=== PATIENT | female | born 2000 | race Caucasian/White ===

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

== ENCOUNTER 2018-07-19 08:55 | Emergency (ER) | payer MEDICAID, OTHER ==
[2018-07-19] MEDS ORDERED: MORPHINE SULFATE 10 MG/ML INJ IV ONE (09:31)
[2018-07-19] MEDS ORDERED: ONDANSETRON HCL INJ/PF 4 MG/2 ML SDV IV ONE ×2 (09:31→12:35)
--- NOTE | 2018-07-19 09:34 | ER Document Report ---
ED General - General Chief Complaint: Pelvic Pain Stated Complaint: ABDOMINAL PAIN Time Seen by Provider: 07/19/18 09:24 TRAVEL OUTSIDE OF THE [place] IN LAST 30 DAYS: No - HPI Notes: Patient is a 18-year-old female with no significant past medical history who presents to the ED complaining of lower abdominal/pelvic pain times 1 day. Patient states her pain started last evening and has progressed and at this morning. Patient states that the pain is constant and more of a sharp pain. Patient states that the pain does not radiate, but does encompass her entire lower pelvic/abdomen area. She is still able to eat and drink without difficulties. She is urinating normally and having normal bowel movements. Patient states that she is currently on her menstrual cycle, but has not noticed any other vaginal odor or discharge. She has no concern of STD or STI, but does partake in unprotected sex. She is not on any control measures. No surgical history to her abdomen. Denies any headache, fever, URI, sore throat, chest pain, palpitations, syncope, cough, shortness of breath, wheeze, dyspnea, nausea/vomiting/diarrhea, urinary retention, dysuria, hematuria, back pain, loss of control of bowel or bladder, numbness/tingling, saddle anesthesia , muscle paralysis/weakness, or rash. - Related Data Allergies/Adverse Reactions: guaifenesin [Guaifenesin] Allergy (Verified 03/30/15 23:20) Penicillins Allergy (Verified 03/30/15 23:20) Past Medical History - Social History Smoking Status: Unknown if Ever Smoked Family History: DM, Hyperlipidemia, Malignancy Renal/ Medical History: Denies: Hx Peritoneal Dialysis - Immunizations Immunizations up to date: Yes Review of Systems - Review of Systems -: Yes All other systems reviewed and negative Physical Exam - Vital signs Vitals: Temp Pulse Resp BP Pulse Ox 98.2 F 96 18 101/63 98 07/19/18 09:02 07/19/18 09:02 07/19/18 09:02 07/19/18 09:02 07/19/18 09:02 - Notes Notes: PHYSICAL EXAMINATION: GENERAL: Well-appearing, well-nourished and in no acute distress. A&Ox4. Answers questions appropriately. LUNGS: Breath sounds clear to auscultation bilaterally and equal. No wheezes rales or rhonchi. HEART: Regular rate and rhythm without murmurs ABDOMEN: Soft, nondistended abdomen. No guarding, no rebound. No masses appreciated. Normal bowel sounds present. CVA tenderness negative bilaterally. + tenderness lower pelvic/abd throughout. Nesbitt neg. Female : No inguinal adenopathy. External genitalia without erythema, lesions , or masses. Vaginal mucosa pink, + bloody discharge. Cervix parous, pink, and with bloody discharge. Uterus is smooth. No adnexal tenderness. No cervical motion tenderness. Musculoskeletal: FROM to passive/active. Strength 5+/5. Extremities: No cyanosis/clubbing/edema b/l. Peripheral pulses 2+. Capillary refill less than 3 seconds. NEUROLOGICAL: Normal speech, normal gait. PSYCH: Normal mood, normal affect. SKIN: Warm, Dry, normal turgor, no rashes or lesions noted. Course - Re-evaluation Re-evalutation: 07/19/18 15:20 Patient is an afebrile, well-hydrated, 18-year-old female who presents to the ED with BV & pelvic pain in the setting of chlamydia and gonorrhea, suspect PID despite significant tenderness with CMT. Vitals are acceptable without any significant tachycardia, tachypnea, or hypoxia. PE is otherwise unremarkable. CBC shows an elevated wbc with left shift. CMP, Urinalysis, and hCG are unremarkable for any acute pathology. See wet mount results. Patient was given Rocephin and Zithromax. Patient is nontoxic-appearing is tolerating p.o. without any difficulties. CT scan of the abdomen/pelvis and transvaginal ultrasound was unremarkable for any acute pathology. No other labs or imaging warranted at this time based on H&P. Low suspicion/risk for acute appendicitis , bowel obstruction, acute cholecystitis, acute cholangitis, perforated diverticulitis, incarcerated hernia, pancreatitis, perforated ulcer, peritonitis , sepsis, ectopic , tubo-ovarian abscess, ovarian torsion, or other systemic emergent condition at this time. Patient is aware that her condition can change from initial presentation and she needs to monitor symptoms closely and seek medical attention if any acute changes. I will send her home with prescription for doxycycline and Flagyl both for 14 days per up-to-date. Conservative measures otherwise for symptoms. Recheck with your PCM/OBGYN in 3- 5 days. Return to the ED with any worsening/concerning symptoms otherwise as reviewed in discharge. Patient is in agreement. Dr. Dacosta in agreement with dispo/plan. - Vital Signs Vital signs: Temp Pulse Resp BP Pulse Ox 98.2 F 96 18 101/63 98 07/19/18 09:02 07/19/18 09:02 07/19/18 09:02 07/19/18 09:02 07/19/18 09:02 - Laboratory Result Diagrams: 07/19/18 09:24 07/19/18 09:24 Laboratory results interpreted by me: 07/19/18 07/19/18 07/19/18 09:24 10:28 10:28 WBC 16.6 H Seg Neutrophils % 84.3 H Lymphocytes % 8.8 L Absolute Neutrophils 14.0 H Urine Protein 30 H Urine Ketones TRACE H Urine Blood LARGE H Urine Urobilinogen 2.0 H Ur Leukocyte Esterase SMALL H Chlamydia DNA (PCR) DETECTED H N.gonorrhoeae DNA (PCR) DETECTED H Procedures - Pelvic Exam Pelvic exam Time completed: 10:20 Cultures obtained: Yes Wet prep obtained: Yes Bimanual exam performed: Yes - negative. Witnessed by: KAMRON Kraft Discharge - Discharge Clinical Impression: Gonorrhea, Chlamydia, PID (acute pelvic inflammatory disease) Condition: Stable Disposition: HOME, SELF-CARE Instructions: Gonorrhea ([facility]), Chlamydia ([facility]), Doxycycline ([facility]), Pelvic Inflammatory Disease ([facility]), Metronidazole ([facility]) Additional Instructions: Maintain fluid intake Proper hygienic technique Keep the skin clean Safe sexual practices with condoms everytime, but abstained for the next 2 weeks while you are being treated Tylenol/ibuprofen as needed Check in with the health department this week for further testing F/u with your PCM/OBGYN in 3-5 days for a recheck Return to the ED with any development of STEINER/fever, trouble with vision, eye redness, worsening pain, urethral discharge, urinary retention, blood in the urine, flank pain, abdominal pain, n/v, Chest Pain, shortness of breath, joint pains, trouble breathing, or any other worsening/concerning symptoms as needed otherwise. Prescriptions: Doxycycline Hyclate 100 mg PO BID #28 capsule Metronidazole [Flagyl] 500 mg PO BID #28 tablet Referrals: MARY CHARLES, SURVEYOR MINE-C [COMMUNITY BASED STAFF] - Follow up as needed [facility] [Provider Group] - Follow up in 3-5 days
[2018-07-19 09:48] LABS: ABSOLUTE BASOPHILS # (AUTO) 0.1 10^3/uL (0.0-0.2); ABSOLUTE EOSINOPHILS # (AUTO) 0.1 10^3/uL (0.0-0.6); ABSOLUTE LYMPHOCYTES (AUTO) 1.5 10^3/uL (0.5-4.7); ABSOLUTE MONOCYTES (AUTO) 0.9 10^3/uL (0.1-1.4); BASOPHILS % (AUTO) 0.3 % (0-2); EOSINOPHILS % (AUTO) 0.9 % (0-6); HEMATOCRIT 39.2 % (36.0-47.0); HEMOGLOBIN 13.3 g/dL (12.0-15.5); LYMPHOCYTES % (AUTO) 8.8 % (13-45); MEAN CORPUSCULAR HEMOGLOBIN 31.6 pg (27.0-33.4); MEAN CORPUSCULAR VOLUME 93 fl (80-97); MONOCYTES % (AUTO) 5.7 % (3-13); PLATELET COUNT 242 10^3/uL (150-450); RED BLOOD COUNT 4.22 10^6/uL (3.72-5.28); RED CELL DISTRIBUTION WIDTH 12.8 % (11.5-14.0); SEGMENTED NEUTROPHILS % (AUTO) 84.3 % (42-78); TOTAL CELLS COUNTED % (AUTO) 100 %; WHITE BLOOD COUNT 16.6 10^3/uL (4.0-10.5)
[2018-07-19 10:12] LABS: ALANINE AMINOTRANSFERASE 18 U/L (9-52); ALBUMIN 4.9 g/dL (3.5-5.0); ALKALINE PHOSPHATASE 67 U/L (38-126); ANION GAP 14 (5-19); ASPARTATE AMINO TRANSFERASE 25 U/L (14-36); BILIRUBIN,DIRECT 0.2 mg/dL (0.0-0.4); BILIRUBIN,TOTAL 0.9 mg/dL (0.2-1.3); BLOOD UREA NITROGEN 9 mg/dL (7-20); CARBON DIOXIDE 28 mmol/L (22-30); CHLORIDE 99 mmol/L (98-107); GLUCOSE 84 mg/dL (75-110); LIPASE 50.3 U/L (23-300); POTASSIUM 4.1 mmol/L (3.6-5.0)
[2018-07-19 10:42] LABS: BACTERIA (WET MOUNT) 3+ BACTERIA SEEN; EPITHELIALS (WET MOUNT) 3+ EPITHELIALS SEEN; RBCS (WET MOUNT) 3+ RBCS SEEN; T.VAGINALIS (WET MOUNT) NO TRICHOMONAS SEEN; WBCS (WET MOUNT) 3+ WBCS SEEN; YEAST (WET MOUNT) NO YEAST SEEN
--- NOTE | 2018-07-19 10:45 | RADIOLOGY REPORT (SQ) ---
EXAM DESCRIPTION: U/S NON OB PEL TV W/DOPPLER COMPLETED DATE/TIME: 07/19/2018 10:09 am REASON FOR STUDY: pelvic pain COMPARISON: None. TECHNIQUE: Dynamic and static grayscale images acquired of the pelvis via transvaginal approach and recorded on PACS. Additional selected color Doppler and spectral images recorded. LIMITATIONS: Pelvic bowel gas, left ovary not visualized FINDINGS: UTERUS: Contour normal. No mass. Uterus is 8 x 4 x 4 cm in size, no fibroids ENDOMETRIAL STRIPE: No focal or generalized thickening. No masses. Endometrium 1.8 cm in thickness CERVIX: No nabothian cysts. Cervix is closed, 2.8 cm in length. RIGHT OVARY AND DOPPLER: Normal size, right ovary 2.7 x 2.4 x 1.9 cm in size. No worrisome masses. No rmal arterial vascular flow without evidence for torsion. LEFT OVARY AND DOPPLER: Not visualized due to pelvic bowel gas. FREE FLUID: None noted. OTHER: No other significant finding. IMPRESSION: NONVISUALIZATION LEFT OVARY AND ADNEXA DUE TO BOWEL GAS. OTHERWISE, UNREMARKABLE TRANSVAGINAL PELVIC ULTRASOUND. TECHNICAL DOCUMENTATION: JOB ID: [id number] All Rights Reserved Rev-01/10 Reading location - IP/workstation name: [email or web address]
[2018-07-19 11:00] LABS: APPEARANCE,URINE SLIGHTLY-CLOUDY; BILIRUBIN,URINE NEGATIVE (NEGATIVE); COLOR,URINE YELLOW; GLUCOSE, URINE NEGATIVE (NEGATIVE); KETONES,URINE TRACE mg/dL (NEGATIVE); LEUKOCYTE ESTERASE,URINE SMALL (NEGATIVE); NITRITE,URINE NEGATIVE (NEGATIVE); PROTEIN,URINE 30 mg/dL (NEGATIVE); URINE SPECIFIC GRAVITY 1.021
[2018-07-19 12:09] LABS: CHLAM PCR DETECTED (NOT DETECT); GON PCR DETECTED (NOT DETECT)
[2018-07-19] MEDS ORDERED: AZITHROMYCIN 250 MG TABLET PO ONE (12:42)
[2018-07-19] MEDS ORDERED: CEFTRIAXONE INJ 250 MG VIAL IM ONE (12:42)
[2018-07-19] MEDS ORDERED: LIDOCAINE 1% INJ-PF (10 MG/ML) 30 ML SDV INJ ONE (12:42)
--- NOTE | 2018-07-19 15:12 | RADIOLOGY REPORT (SQ) ---
EXAM DESCRIPTION: CT ABD/PELVIS WITH IV ORAL COMPLETED DATE/TIME: 07/19/2018 2:47 pm REASON FOR STUDY: lower abd pain, leukocytosis COMPARISON: Pelvic ultrasound 07/19/2018 TECHNIQUE: CT scan of the abdomen and pelvis performed using helical scanning technique with dynamic intravenous contrast injection. Oral contrast was also administered. Images reviewed with lung, sof t tissue, and bone windows. Reconstructed coronal and sagittal MPR images reviewed. Delayed images fo r evaluation of the urinary system also acquired. All images stored on PACS. All CT scanners at this facility use dose modulation, iterative reconstruction, and/or weight based d osing when appropriate to reduce radiation dose to as low as reasonably achievable (ALARA). [facility]: Dose Right [facility]: CareDose [facility]: Dose Right [facility]: Teradose 4D [facility]: Jovie CONTRAST TYPE AND DOSE: contrast/concentration: Isovue 350.00 mg/ml; Total Contrast Delivered: 54.0 ml; Total Saline Delivered: 65.0 ml RENAL FUNCTION: None required. The patient is less than 50 years old. RADIATION DOSE: CT Rad equipment meets quality standard of care and radiation dose reduction techniq ues were employed. CTDIvol: 2.4 - 3.6 mGy. DLP: 323 mGy-cm.. LIMITATIONS: None. FINDINGS: LOWER CHEST: No significant findings. No nodules or infiltrates. LIVER: Normal size. No masses. No dilated ducts. SPLEEN: Normal size. No focal lesions. PANCREAS: No masses. No significant calcifications. No adjacent inflammation or peripancreatic fluid collections. Pancreatic duct not dilated. GALLBLADDER: No identified stones by CT criteria. No inflammatory changes to suggest cholecystitis. ADRENAL GLANDS: No significant masses or asymmetry. RIGHT KIDNEY AND URETER: No solid masses. No significant calcifications. No hydronephrosis or hyd roureter. LEFT KIDNEY AND URETER: No solid masses. No significant calcifications. No hydronephrosis or hydr oureter. AORTA AND VESSELS: No aneurysm. No dissection. Renal arteries, SMA, celiac without stenosis. RETROPERITONEUM: No retroperitoneal adenopathy, hemorrhage or masses. BOWEL AND PERITONEAL CAVITY: Enteric contrast has propagated to the level of the rectum. No masses o r inflammatory changes. No free fluid or peritoneal masses. APPENDIX: Normal. PELVIS: No mass. No free fluid. Normal bladder. The uterus and ovaries appear normal for modality/t echnique. ABDOMINAL WALL: No masses. No hernias. BONES: No significant or acute findings. OTHER: No other significant finding. IMPRESSION: NO SIGNIFICANT OR ACUTE FINDING IN THE ABDOMEN OR PELVIS ON CT SCAN WITH IV CONTRAST. TECHNICAL DOCUMENTATION: JOB ID: [id number] Quality ID # [id number]: Final reports with documentation of one or more dose reduction techniques (e.g., Au tomated exposure control, adjustment of the mA and/or kV according to patient size, use of iterative reconstruction technique) 2010 [employer]- All Rights Reserved Reading location - IP/workstation name: [email or web address]
[2018-07-19 15:29] VITALS: BP 113/57
== END 2018-07-19 15:54 | disposition home or self-care (01) ==
LOC: ER 08:55
DX: A56.11 Chlamydial female pelvic inflammatory disease (principal); A54.24 Gonococcal female pelvic inflammatory disease; R10.2 Pelvic and perineal pain; Z88.0 Allergy status to penicillin; Z88.8 Allergy status to other drugs, medicaments and biological substances
CPT/HCPCS: 99284; 96372; 96374; 36415; 87210; 84702; 83690; 85025; 80053; 81001; 87491; 87591; 76830; 93976; 74177; J3490; J2405; J0696

== ENCOUNTER 2020-02-12 22:45 | Outpatient (CLI) | payer MEDICAID ==
[2020-02-12 23:22] LABS: APPEARANCE,URINE CLEAR; BILIRUBIN,URINE NEGATIVE (NEGATIVE); COLOR,URINE COLORLESS; GLUCOSE, URINE NEGATIVE (NEGATIVE); KETONES,URINE NEGATIVE (NEGATIVE); LEUKOCYTE ESTERASE,URINE NEGATIVE (NEGATIVE); NITRITE,URINE NEGATIVE (NEGATIVE); PROTEIN,URINE NEGATIVE (NEGATIVE); URINE SPECIFIC GRAVITY 1.002; UROBILINOGEN,URINE NEGATIVE mg/dL (<2.0)
[2020-02-12 23:41] LABS: URINE AMPHETAMINES SCREEN NEGATIVE; URINE BARBITURATES SCREEN NEGATIVE; URINE BENZODIAZEPINES SCREEN NEGATIVE; URINE COCAINE SCREEN NEGATIVE; URINE MARIJUANA (THC) SCREEN NEGATIVE; URINE METHADONE SCREEN NEGATIVE; URINE PHENCYCLIDINE SCREEN NEGATIVE
== END 2020-02-12 23:41 | disposition home or self-care (01) ==
LOC: LC 22:45
PROVIDERS: ATTEND Student in an Organized Health Care Education/Training Program
DX: O26.892 Other specified pregnancy related conditions, second trimester (principal); R10.2 Pelvic and perineal pain; Z3A.23 23 weeks gestation of pregnancy; Z88.1 Allergy status to other antibiotic agents; Z87.891 Personal history of nicotine dependence
CPT/HCPCS: 80307; 81001

== ENCOUNTER 2020-04-22 16:04 | Outpatient (CLI) | payer OTHER ==
[2020-04-22 17:08] LABS: APPEARANCE,URINE SLIGHTLY-CLOUDY; BILIRUBIN,URINE NEGATIVE (NEGATIVE); COLOR,URINE STRAW; GLUCOSE, URINE NEGATIVE (NEGATIVE); KETONES,URINE NEGATIVE (NEGATIVE); LEUKOCYTE ESTERASE,URINE LARGE (NEGATIVE); NITRITE,URINE NEGATIVE (NEGATIVE); PROTEIN,URINE NEGATIVE (NEGATIVE); URINE SPECIFIC GRAVITY 1.005; UROBILINOGEN,URINE NEGATIVE mg/dL (<2.0)
[2020-04-22 17:21] LABS: BACTERIA (WET MOUNT) 4+ BACTERIA SEEN; EPITHELIALS (WET MOUNT) 4+ EPITHELIALS SEEN; T.VAGINALIS (WET MOUNT) NO TRICHOMONAS SEEN; WBCS (WET MOUNT) 3+ WBCS SEEN; YEAST (WET MOUNT) YEAST SEEN
[2020-04-22 17:22] LABS: URINE AMPHETAMINES SCREEN NEGATIVE; URINE BARBITURATES SCREEN NEGATIVE; URINE BENZODIAZEPINES SCREEN NEGATIVE; URINE COCAINE SCREEN NEGATIVE; URINE MARIJUANA (THC) SCREEN NEGATIVE; URINE METHADONE SCREEN NEGATIVE; URINE PHENCYCLIDINE SCREEN NEGATIVE
[2020-04-22] MEDS ORDERED: RINGERS SOLUTION,LACTATED 1,000 ML IV PRN (18:15)
[2020-04-22] MEDS ORDERED: FLUCONAZOLE 100 MG TABLET PO ONE (18:35)
[2020-04-22] MEDS ORDERED: CEFTRIAXONE INJ 1000 MG VIAL ONE (18:36)
[2020-04-22] MEDS ORDERED: FLUCONAZOLE 100 MG TABLET ONE (18:36)
[2020-04-22 18:54] LABS: CHLAM PCR NOT DETECTED (NOT DETECT)
--- NOTE | 2020-04-23 01:44 | Non Stress Test Report ---
Non Stress Test Datetime Report Generated by CPN: 04/23/2020 01:44 DEMOGRAPHIC EGA NST: 33.3 INDICATION Indication for Study (NST) Other: >32 weeks URINE RESULTS Urine Protein, NST: Negative Urine Ketones - NST: Negative Urine Glucose - NST: Negative Urine Blood - NST: Negative MONITORING Monitor Explained: Monitor Explained; Test Explained; Patient Verbalized Understanding Time on Monitor: 04/22/2020 19:00 Time off Monitor: 04/22/2020 20:18 NST Duration: 78 NST INTERVENTIONS NST Interventions: PO Hydration Physician Notified NST: Dr. Orona BABY A: [id number] BABY A Movement : Present Contraction Frequency : Irregular FHR Baseline : 135 Accelerations : 15X15 Decelerations : None Variability : Moderate 6-25bpm NST Review: Meets Criteria for Reactive NST NST Review and Verified By : SJosue Jack, RN NST Results: Reactive NST COMMENTS NST Comments: Audible arrhythmia. Provider aware. NST REPORT Report Trigger: Send Report
[2020-04-23] MEDS ORDERED: CEFTRIAXONE 1 GM/D5W RTU 1 GM/50 ML RTUPB IV SCH (10:00)
== END 2020-04-22 20:28 | disposition home or self-care (01) ==
LOC: LC 16:04
PROVIDERS: ATTEND Student in an Organized Health Care Education/Training Program
DX: O47.03 False labor before 37 completed weeks of gestation, third trimester (principal); O36.8330 Maternal care for abnormalities of the fetal heart rate or rhythm, third trimester, not applicable or unspecified; Z3A.33 33 weeks gestation of pregnancy; Z88.8 Allergy status to other drugs, medicaments and biological substances
CPT/HCPCS: 59025; 87086; 87210; 81001; 80307; 87491; 87591; J0696

== ENCOUNTER → 2020-05-16 | Outpatient (CLI) | payer OTHER ==
[2020-05-16 20:55] LABS: APPEARANCE,URINE CLOUDY; BILIRUBIN,URINE NEGATIVE (NEGATIVE); COLOR,URINE YELLOW; GLUCOSE, URINE NEGATIVE (NEGATIVE); KETONES,URINE NEGATIVE (NEGATIVE); LEUKOCYTE ESTERASE,URINE LARGE (NEGATIVE); NITRITE,URINE NEGATIVE (NEGATIVE); PROTEIN,URINE NEGATIVE (NEGATIVE); URINE SPECIFIC GRAVITY 1.015; UROBILINOGEN,URINE NEGATIVE mg/dL (<2.0)
[2020-05-16 21:17] LABS: URINE AMPHETAMINES SCREEN NEGATIVE; URINE BARBITURATES SCREEN NEGATIVE; URINE BENZODIAZEPINES SCREEN NEGATIVE; URINE COCAINE SCREEN NEGATIVE; URINE METHADONE SCREEN NEGATIVE; URINE PHENCYCLIDINE SCREEN NEGATIVE
[2020-05-16 21:53] LABS: URINE MARIJUANA (THC) SCREEN UNCONFIRMED POSITIVE
== END | disposition home or self-care (01) ==
LOC: LC 20:00
PROVIDERS: ATTEND Obstetrics & Gynecology Gynecology
DX: O47.03 False labor before 37 completed weeks of gestation, third trimester (principal); Z3A.36 36 weeks gestation of pregnancy
CPT/HCPCS: 59025; 81005; 80307; G0480 ×2; 80349

== ENCOUNTER 2020-05-27 14:25 | Outpatient (CLI) | payer OTHER ==
[2020-05-27] MEDS ORDERED: HYDROXYZINE PAMOATE 50 MG CAPSULE PO ONE (14:49)
[2020-05-27 15:07] LABS: APPEARANCE,URINE CLOUDY; BILIRUBIN,URINE NEGATIVE (NEGATIVE); COLOR,URINE YELLOW; GLUCOSE, URINE NEGATIVE (NEGATIVE); KETONES,URINE NEGATIVE (NEGATIVE); LEUKOCYTE ESTERASE,URINE LARGE (NEGATIVE); NITRITE,URINE NEGATIVE (NEGATIVE); PROTEIN,URINE NEGATIVE (NEGATIVE); URINE SPECIFIC GRAVITY 1.008; UROBILINOGEN,URINE NEGATIVE mg/dL (<2.0)
[2020-05-27 15:18] LABS: URINE AMPHETAMINES SCREEN NEGATIVE; URINE BARBITURATES SCREEN NEGATIVE; URINE BENZODIAZEPINES SCREEN NEGATIVE; URINE COCAINE SCREEN NEGATIVE; URINE MARIJUANA (THC) SCREEN NEGATIVE; URINE METHADONE SCREEN NEGATIVE; URINE PHENCYCLIDINE SCREEN NEGATIVE
[2020-05-27] MEDS ORDERED: HYDROXYZINE PAMOATE 50 MG CAPSULE ONE (16:26)
--- NOTE | 2020-05-27 16:38 | Non Stress Test Report ---
Non Stress Test Datetime Report Generated by CPN: 05/27/2020 16:37 DEMOGRAPHIC EGA NST: 38.3 INDICATION Indication for Study (NST) Other: LC- ctxs VITAL SIGNS Temperature - NST: 98.4 Pulse - NST: 68 RESP - NST: 15 NBPSYS NST: 126 NBPDIA NST: 75 MONITORING Monitor Explained: Monitor Explained; Test Explained; Patient Verbalized Understanding Time on Monitor: 05/27/2020 14:40 Time off Monitor: 05/27/2020 15:11 NST Duration: 31 NST INTERVENTIONS NST Interventions: PO Hydration Physician Notified NST: N Raman CNM BABY A: [id number] BABY A Movement : Present Contraction Frequency : 3-5 FHR Baseline : 135 Accelerations : 15X15 Decelerations : None Variability : Moderate 6-25bpm NST Review: Meets Criteria for Reactive NST NST Review and Verified By : B Baidy RN NST Results: Reactive NST COMMENTS NST Comments: CNM on unit reviewing FHT strip NST REPORT Report Trigger: Send Report
== END 2020-05-27 16:39 | disposition home or self-care (01) ==
LOC: LC 14:25
PROVIDERS: ATTEND Student in an Organized Health Care Education/Training Program
DX: O47.1 False labor at or after 37 completed weeks of gestation (principal); Z3A.38 38 weeks gestation of pregnancy
CPT/HCPCS: 80307; 81005

== ENCOUNTER 2020-05-27 23:23 | Outpatient (CLI) | payer OTHER ==
[2020-05-28 00:11] LABS: APPEARANCE,URINE SLIGHTLY-CLOUDY; BILIRUBIN,URINE NEGATIVE (NEGATIVE); COLOR,URINE YELLOW; GLUCOSE, URINE NEGATIVE (NEGATIVE); KETONES,URINE NEGATIVE (NEGATIVE); LEUKOCYTE ESTERASE,URINE LARGE (NEGATIVE); NITRITE,URINE NEGATIVE (NEGATIVE); PROTEIN,URINE NEGATIVE (NEGATIVE); URINE SPECIFIC GRAVITY 1.016; UROBILINOGEN,URINE NEGATIVE mg/dL (<2.0)
[2020-05-28 00:31] LABS: URINE AMPHETAMINES SCREEN NEGATIVE; URINE BARBITURATES SCREEN NEGATIVE; URINE BENZODIAZEPINES SCREEN NEGATIVE; URINE COCAINE SCREEN NEGATIVE; URINE METHADONE SCREEN NEGATIVE; URINE PHENCYCLIDINE SCREEN NEGATIVE
[2020-05-28 00:39] LABS: URINE MARIJUANA (THC) SCREEN UNCONFIRMED POSITIVE
== END 2020-05-28 00:23 | disposition left against medical advice (07) ==
LOC: LC 23:23
PROVIDERS: ATTEND Student in an Organized Health Care Education/Training Program
DX: O47.1 False labor at or after 37 completed weeks of gestation (principal); Z3A.38 38 weeks gestation of pregnancy
CPT/HCPCS: 80307; 81005

== ENCOUNTER 2020-05-28 17:55 | Outpatient (CLI) | payer OTHER ==
--- NOTE | 2020-05-28 17:59 | Non Stress Test Report ---
Non Stress Test Datetime Report Generated by CPN: 05/28/2020 17:59 DEMOGRAPHIC EGA NST: 38.3 INDICATION Indication for Study (NST) Other: lc > 32 weeks VITAL SIGNS Temperature - NST: 98.0 Pulse - NST: 77 RESP - NST: 17 NBPSYS NST: 119 NBPDIA NST: 61 MONITORING Monitor Explained: Monitor Explained; Test Explained; Patient Verbalized Understanding Time on Monitor: 05/27/2020 23:40 Time off Monitor: 05/28/2020 00:13 NST Duration: 33 NST INTERVENTIONS NST Interventions: PO Hydration; Reposition Patient Physician Notified NST: dr sharp BABY A: [id number] BABY A Movement : Present Contraction Frequency : x2 FHR Baseline : 135 Accelerations : Prolonged Decelerations : None Variability : Moderate 6-25bpm NST Review: Meets Criteria for Reactive NST NST Review and Verified By : RN Kossmann NST COMMENTS NST Comments: Patient left AMA NST REPORT Report Trigger: Send Report
[2020-05-28 18:34] LABS: APPEARANCE,URINE SLIGHTLY-CLOUDY; BILIRUBIN,URINE NEGATIVE (NEGATIVE); COLOR,URINE YELLOW; GLUCOSE, URINE NEGATIVE (NEGATIVE); KETONES,URINE NEGATIVE (NEGATIVE); LEUKOCYTE ESTERASE,URINE SMALL (NEGATIVE); NITRITE,URINE NEGATIVE (NEGATIVE); PROTEIN,URINE NEGATIVE (NEGATIVE); URINE SPECIFIC GRAVITY 1.009; UROBILINOGEN,URINE NEGATIVE mg/dL (<2.0)
[2020-05-28 18:52] LABS: URINE AMPHETAMINES SCREEN NEGATIVE; URINE BARBITURATES SCREEN NEGATIVE; URINE BENZODIAZEPINES SCREEN NEGATIVE; URINE COCAINE SCREEN NEGATIVE; URINE METHADONE SCREEN NEGATIVE; URINE PHENCYCLIDINE SCREEN NEGATIVE
[2020-05-28 18:54] LABS: URINE MARIJUANA (THC) SCREEN UNCONFIRMED POSITIVE
[2020-05-28] MEDS ORDERED: ZOLPIDEM TARTRATE 5 MG TABLET ONE (20:50)
[2020-05-28] MEDS ORDERED: ZOLPIDEM TARTRATE 5 MG TABLET PO ONE (21:00)
--- NOTE | 2020-05-28 21:03 | Non Stress Test Report ---
Non Stress Test Datetime Report Generated by CPN: 05/28/2020 21:03 DEMOGRAPHIC Test Number: 5 EGA NST: 38.4 INDICATION Indication for Study (NST) Other: >36 weeks URINE RESULTS Urine Protein, NST: Negative Urine Ketones - NST: Negative Urine Glucose - NST: Negative Urine Blood - NST: Positive MONITORING Monitor Explained: Monitor Explained; Test Explained; Patient Verbalized Understanding Time on Monitor: 05/28/2020 18:15 Time off Monitor: 05/28/2020 18:52 NST Duration: 37 NST INTERVENTIONS NST Interventions: PO Hydration; Reposition Patient NST Interventions Other: Popsicle Physician Notified NST: Dr. Perez BABY A Movement : Present Contraction Frequency : Irregular FHR Baseline : 145 Accelerations : 15X15 Decelerations : None Variability : Moderate 6-25bpm NST Review: Meets Criteria for Reactive NST NST Review and Verified By : MARIKA JONES Results: Reactive NST REPORT Report Trigger: Send Report
== END 2020-05-28 21:01 | disposition home or self-care (01) ==
LOC: LC 17:55
PROVIDERS: ATTEND Obstetrics & Gynecology
DX: O47.1 False labor at or after 37 completed weeks of gestation (principal); Z3A.38 38 weeks gestation of pregnancy; Z02.83 Encounter for blood-alcohol and blood-drug test
CPT/HCPCS: 59025; 81005; 80307; 84112; G0480 ×2; 80349

== ENCOUNTER 2020-05-29 20:33 | Outpatient (CLI) | payer OTHER ==
[2020-05-29] MEDS ORDERED: ZOLPIDEM TARTRATE 5 MG TABLET ONE (21:11)
--- NOTE | 2020-05-29 21:17 | Non Stress Test Report ---
Non Stress Test Datetime Report Generated by CPN: 05/29/2020 21:17 DEMOGRAPHIC EGA NST: 38.5 INDICATION Indication for Study (NST) Other: lc MONITORING Monitor Explained: Monitor Explained; Test Explained; Patient Verbalized Understanding Time on Monitor: 05/29/2020 20:44 Time off Monitor: 05/29/2020 21:04 NST Duration: 20 NST INTERVENTIONS NST Interventions: PO Hydration; Reposition Patient Physician Notified NST: Dr Perez BABY A: [id number] BABY A Movement : Present Contraction Frequency : 5 FHR Baseline : 145 Accelerations : 15X15 Decelerations : None Variability : Moderate 6-25bpm NST Review: Meets Criteria for Reactive NST NST Review and Verified By : BJosue Sofia RN NST Results: Reactive NST COMMENTS NST Comments: phone report to Dr Perez and patient desires to leave at this time NST REPORT Report Trigger: Send Report
[2020-05-29 22:01] LABS: APPEARANCE,URINE SLIGHTLY-CLOUDY; BILIRUBIN,URINE NEGATIVE (NEGATIVE); COLOR,URINE STRAW; GLUCOSE, URINE NEGATIVE (NEGATIVE); KETONES,URINE NEGATIVE (NEGATIVE); LEUKOCYTE ESTERASE,URINE TRACE (NEGATIVE); NITRITE,URINE NEGATIVE (NEGATIVE); PROTEIN,URINE NEGATIVE (NEGATIVE); URINE SPECIFIC GRAVITY 1.006; UROBILINOGEN,URINE NEGATIVE mg/dL (<2.0)
[2020-05-29 22:05] LABS: URINE AMPHETAMINES SCREEN NEGATIVE; URINE BARBITURATES SCREEN NEGATIVE; URINE BENZODIAZEPINES SCREEN NEGATIVE; URINE COCAINE SCREEN NEGATIVE; URINE METHADONE SCREEN NEGATIVE; URINE PHENCYCLIDINE SCREEN NEGATIVE
[2020-05-29 22:15] LABS: URINE MARIJUANA (THC) SCREEN UNCONFIRMED POSITIVE
== END 2020-05-29 21:18 | disposition home or self-care (01) ==
LOC: LC 20:33
PROVIDERS: ATTEND Obstetrics & Gynecology
DX: O47.1 False labor at or after 37 completed weeks of gestation (principal); Z3A.38 38 weeks gestation of pregnancy
CPT/HCPCS: 80307; 81005

== ENCOUNTER 2020-05-31 06:50 | Inpatient (IN) | payer OTHER ==
[2020-05-31 07:17] LABS: APPEARANCE,URINE CLOUDY; BILIRUBIN,URINE NEGATIVE (NEGATIVE); COLOR,URINE YELLOW; GLUCOSE, URINE NEGATIVE (NEGATIVE); KETONES,URINE NEGATIVE (NEGATIVE); LEUKOCYTE ESTERASE,URINE LARGE (NEGATIVE); NITRITE,URINE NEGATIVE (NEGATIVE); PROTEIN,URINE 30 mg/dL (NEGATIVE); URINE SPECIFIC GRAVITY 1.016; UROBILINOGEN,URINE NEGATIVE mg/dL (<2.0)
[2020-05-31] MEDS ORDERED: OXYTOCIN/0.9 % SODIUM CHLORIDE 30 UNIT/500 ML RTUINJ ONE (07:18)
[2020-05-31] MEDS ORDERED: MISOPROSTOL 0.2 MG TABLET ONE (07:18)
[2020-05-31] MEDS ORDERED: LIDOCAINE 1% INJ-PF (10 MG/ML) 30 ML SDV ONE (07:18)
[2020-05-31] MEDS ORDERED: OXYTOCIN 10 UNIT/ML VIAL ONE (07:18)
[2020-05-31] MEDS ORDERED: PENICILLIN G-K 5 MILLION UNIT VIAL ONE ×3 (07:22→14:48)
[2020-05-31] MEDS: RINGERS SOLUTION,LACTATED 1,000 ML IV PRN ×3 (07:24→10:59)
[2020-05-31] MEDS ORDERED: PENICILLIN G POTASSIUM 5,000,000 UNIT in DEXTROSE 5%-WATER 100 ML IV ONE (07:30)
[2020-05-31 07:31] LABS: URINE AMPHETAMINES SCREEN NEGATIVE; URINE BARBITURATES SCREEN NEGATIVE; URINE BENZODIAZEPINES SCREEN NEGATIVE; URINE COCAINE SCREEN NEGATIVE; URINE METHADONE SCREEN NEGATIVE; URINE PHENCYCLIDINE SCREEN NEGATIVE
[2020-05-31 07:36] LABS: URINE MARIJUANA (THC) SCREEN UNCONFIRMED POSITIVE
[2020-05-31] MEDS ORDERED: FENTANYL/BUPIVACAINE/NS/PF 300 MCG/150 ML RTUINJ EPI ONE (07:42)
[2020-05-31] MEDS ORDERED: EPHEDRINE SULFATE INJ 50 MG/1 ML AMPULE ONE (07:42)
[2020-05-31] MEDS ORDERED: ROPIVACAINE HCL 0.2% INJ/PF (2 MG/ML) 20 ML SDV ONE (07:43)
--- NOTE | 2020-05-31 07:44 | Admission Physical ---
Datetime Report Generated by CPN: 05/31/2020 07:44 CURRENT ADMISSION Chief Complaint: Uterine Contractions Indication for Induction: Not Applicable Admit Impression : Term, Intrauterine ; Active Labor Admit Plan: Admit to Unit; Initiate Labor Augmentation Protocol ALLERGIES Medication Allergies: Yes Medication Allergies: guaifenesin/MO/Nausea (05/28/2020) Latex: No Latex Allergies Food Allergies: None Environmental Allergies: None OBSTETRICAL HISTORY EDC: 06/07/2020 00:00 : 1 Para: 0 Term: 0 : 0 SAB: 0 IAB: 0 Ectopic: 0 Livin Cesareans: 0 VBACs: 0 Multiple Births: 0 Gestational Diabetes: No Rh Sensitization: No Incompetent Cervix: No MIN: No Infertility: No ART Treatment: No Uterine Anomaly: No IUGR: No Hx Previous C/S: No Macrosomia: No Hx Loss/Stillborn: No PIH: No Hx : No Placenta Previa/Abruption: No Depression/PP Depression: No PTL/PROM: No Post Hemorrhage: No Current Procedures: Ultrasound Obstetrical History Comments: G1: current SEE RECORDS Alcohol: No Marijuana : No Cocaine: No Other Illicit Drugs: No Cigarettes: Never Smoker. 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 anxiety never on meds INFECTIOUS HISTORY Gonorrhea: Yes Genital Herpes: No Chlamydia: Yes Tuberculosis: No Syphilis: No Hepatitis: No HIV/AIDS Exposure: No Rash or Viral Illness: No HPV: Yes Infectious History Comments: 2019 paulo/chlam pt. received treatment PHYSICAL EXAM General: Normal HEENT: Normal Neurologic: Normal Thyroid: Normal Heart: Normal Lungs: Normal Breast: Normal Back: Normal Abdomen: Normal Genitourinary Exam: Normal Extremities: Normal DTRs: Normal Pelvic Type: Adequate Vital Signs: Reviewed VAGINAL EXAM Dilatation: 4 Effacement: 90 Station: -1 MEMBRANES Pooling: Negative Membranes: Intact FETUS A EGA: 39.0 Monitoring: External US FHR- Baseline: 150 Variability: Moderate 6-25bpm Accelerations: 15X15 Decelerations: None FHR Category: Category I Estimated Weight (gm): 3400 Presentation: Vertex PLANS FOR LABOR AND DELIVERY Labor and Delivery: None Pain Management: Epidural Other Pain Management Plans: unsure Feeding Preference: Breast Benefit of Breast Feed Discussed: Yes Circumcision: Yes INFORMED CONSENT Signature: with User ID: [email or web address]
[2020-05-31 08:11] LABS: ABSOLUTE BASOPHILS # (AUTO) 0.1 10^3/uL (0.0-0.2); ABSOLUTE EOSINOPHILS # (AUTO) 0.3 10^3/uL (0.0-0.6); ABSOLUTE LYMPHOCYTES (AUTO) 2.1 10^3/uL (0.5-4.7); ABSOLUTE MONOCYTES (AUTO) 0.7 10^3/uL (0.1-1.4); BASOPHILS % (AUTO) 0.6 % (0-2); EOSINOPHILS % (AUTO) 2.5 % (0-6); HEMATOCRIT 34.6 % (36.0-47.0); HEMOGLOBIN 11.7 g/dL (12.0-15.5); LYMPHOCYTES % (AUTO) 18.7 % (13-45); MEAN CORPUSCULAR HEMOGLOBIN 27.6 pg (27.0-33.4); MEAN CORPUSCULAR HGB CONC 33.8 g/dL (32.0-36.0); MEAN CORPUSCULAR VOLUME 82 fl (80-97); MONOCYTES % (AUTO) 6.4 % (3-13); PLATELET COUNT 167 10^3/uL (150-450); RED BLOOD COUNT 4.24 10^6/uL (3.72-5.28); RED CELL DISTRIBUTION WIDTH 16.5 % (11.5-14.0); SEGMENTED NEUTROPHILS % (AUTO) 71.8 % (42-78); TOTAL CELLS COUNTED % (AUTO) 100 %; WHITE BLOOD COUNT 11.1 10^3/uL (4.0-10.5)
[2020-05-31] MEDS ORDERED: OXYTOCIN/0.9 % SODIUM CHLORIDE 30 UNIT/500 ML RTUINJ IV PRN ×2 (11:24→16:32)
[2020-05-31] MEDS: PENICILLIN G POTASSIUM 2,500,000 UNIT in DEXTROSE 5%-WATER 50 ML IV SCH ×3 (11:28→20:50)
[2020-05-31] MEDS ORDERED: BUPIVACAINE HCL 0.25 % INJ/PF (2.5 MG/1 ML) 30 ML VIAL ONE (12:12)
[2020-05-31] MEDS ORDERED: ONDANSETRON HCL INJ/PF 4 MG/2 ML SDV ONE (16:01)
[2020-05-31] MEDS ORDERED: ONDANSETRON HCL INJ/PF 4 MG/2 ML SDV IV ONE (16:04)
[2020-05-31] MEDS ORDERED: PROMETHAZINE HCL 25 MG SUPP.RECT PR PRN (16:32)
[2020-05-31] MEDS ORDERED: MAGNESIUM HYDROXIDE SUSP 30 ML UDCUP PO PRN (16:32)
[2020-05-31] MEDS ORDERED: DIPHENHYDRAMINE HCL 25 MG CAPSULE PO PRN (16:32)
[2020-05-31] MEDS ORDERED: GLYCERIN/WITCH HAZEL LEAF 1 EACH MED..WIPE TP PRN (16:32)
[2020-05-31] MEDS ORDERED: DIPH/PERTUSS(ACELL)/TETANUS VAC/PF 0.5 ML SYR (>=10YO) IM PRN (16:32)
[2020-05-31] MEDS ORDERED: NA PHOS,M-B/NA PHOS,DI-BA (ADULT) 133 ML ENEMA PR PRN (16:32)
[2020-05-31] MEDS ORDERED: BENZOCAINE/MENTHOL AEROSOL SPRAY 56 ML TOP PRN (16:32)
[2020-05-31] MEDS ORDERED: PROMETHAZINE HCL 25 MG TABLET PO PRN (16:32)
[2020-05-31] MEDS ORDERED: DIBUCAINE 1% OINTMENT 28 GM TP PRN (16:32)
[2020-05-31] MEDS ORDERED: ACETAMINOPHEN WITH CODEINE #3 TABLET PO PRN (16:32)
[2020-05-31] MEDS ORDERED: PROMETHAZINE HCL INJ 25 MG/1 ML VIAL IV PRN (16:32)
[2020-05-31] MEDS ORDERED: MEASLES,MUMPS&RUBELLA VACC/PF 0.5 ML VIAL SUBCUT PRN (16:32)
[2020-05-31] MEDS ORDERED: ZOLPIDEM TARTRATE 5 MG TABLET PO PRN (16:32)
[2020-05-31] MEDS ORDERED: ACETAMINOPHEN 650 MG SUPP.RECT PR PRN (16:32)
[2020-05-31] MEDS ORDERED: PSEUDOEPHEDRINE HCL 30 MG TABLET PO PRN (16:32)
[2020-05-31] MEDS ORDERED: ACETAMINOPHEN WITH CODEINE #3 TABLET ONE (16:46)
[2020-05-31] MEDS ORDERED: IBUPROFEN 800 MG TABLET ONE ×2 (16:47→20:50)
[2020-05-31] MEDS ORDERED: BENZOCAINE/MENTHOL AEROSOL SPRAY 56 ML ONE (18:16)
--- NOTE | 2020-05-31 18:32 | Birth Certificate Data ---
Cert Data Datetime Report Generated by CPN: 05/31/2020 18:31 CERTIFICATE DATA 47a. Care: Yes (02/12/2020 22:47:Raeann Miranda RN) 47b. Date of First Visit: 11/09/2019 00:00 (02/12/2020 22:47:Mirian Broussard RN) 48a. Number of Prev Live Births: 0 (02/12/2020 22:47:Aster Barragan RN) 48b. Now Livin (02/12/2020 22:47:Raeann Miranda RN) 48c. Live Births Now : 0 (02/12/2020 22:47:QS system process) 48e. Losses: 0 (02/12/2020 22:47:Aster Barragan RN) RISK FACTORS IN THIS 49a. Diabetes: No (02/12/2020 22:47:Raeann Miranda RN) 49b. Hypertension: No (02/12/2020 22:47:Raeann Miranda RN) 49c. Previous Births: 0 (02/12/2020 22:47:Aster Barragan RN) 49d. Stillborns: No (02/12/2020 22:47:Raeann Miranda RN) 49d. IUGR: No (02/12/2020 22:47:Raeann Miranda RN) 49e. Infertility Treatment: No (02/12/2020 22:47:Raeann Miranda RN) 49f. Previous Cesareans: 0 (02/12/2020 22:47:Aster Barragan RN) Mother's Height 50b. Height Inches: 64 (05/31/2020 16:28:QS system process) Mother's Weight 51a. Pre- Weight (lbs): 120 (02/12/2020 22:47:Raeann Miranda RN) 51b. Weight at Delivery (lbs): 158 (05/31/2020 16:28:QS system process) 52. Dt Last Normal Menses Began: 08/19/2019 00:00 (02/12/2020 22:47:Yajaira Kim RN) Infections Present/Treated 53a. Gonorrhea: Yes (02/12/2020 22:47:Raeann Miranda RN) Results this Hospital Visit : Negative (02/12/2020 22:47:Yajaira Kim RN) 53b. Syphilis: No (02/12/2020 22:47:Raeann Miranda RN) 53c. Chlamydia: Yes (02/12/2020 22:47:Raeann Miranda RN) Results this Hospital Visit: Negative (02/12/2020 22:47:Yajaira Kim RN) 53d. Hepatitis B: No (02/12/2020 22:47:Raeann Miranda RN) Results this Hospital Visit: Negative (02/12/2020 22:47:Raeann Miranda RN) 53e. Hepatitis C: Negative (02/12/2020 22:47:Yajaira Kim RN) 53h. Mother Tested for HBsAG: Yes (02/12/2020 22:47:Yajaira Kim RN) 53i. Date Tested: 11/09/2019 00:00 (02/12/2020 22:47:Yajaira Kim RN) 53j. Test Result: Negative (02/12/2020 22:47:Raeann Miranda RN) Obstetric Procedures 54a, b, c. Obstetric Procedures: Ultrasound (02/12/2020 22:47:Yajaira Kim RN) Cigarette Smoking Cigarette Smoking: Never Smoker. [id number] (02/12/2020 22:47:Aster Barragan RN) 55a. 3 Months Before Preg - Ci (02/12/2020 22:47:Aster Barragan RN) 55b. 1st Trimester of Preg- Ci (02/12/2020 22:47:Aster Barragan RN) 55c. 2nd Trimester of Preg- Ci (02/12/2020 22:47:Aster Barragan RN) 55d. 3rd Trimester of Preg- Ci (02/12/2020 22:47:Aster Barragan RN) Onset of Labor 56a. PROM >12 Hrs: 6.82 (02/12/2020 22:47:QS system process) 56b. Precipitous Labor <3 Hrs: 6 (02/12/2020 22:47:QS system process) 56c. Prolonged Labor > 20 Hrs: 6 (02/12/2020 22:47:QS system process) 57a. Induction of Labor: Augmentation (02/12/2020 22:47:ARLENE Anderson) 57c. Non-Vertex Presentation A: Vertex (02/12/2020 22:47:ARLENE Anderson) 57d. Steroids - Lung Mat: None (02/12/2020 22:47:Yajaira Kim RN) 57d. Steroids - Lung Mat: Not Applicable (02/12/2020 22:47:Yajaira Kim RN) 57e. Antibiotics During Labor: 05/31/2020 15:23 (02/12/2020 22:47:ARLENE Anderson) 57f. Mat [place] or Temp >100.4: 98.9 (02/12/2020 22:47:Lia Chavez RN) 57g. Moderate/Heavy Meconium: Clear (05/31/2020 09:33:Yajaira Kim RN) 57h. Intolerance of Labor: N/A (02/12/2020 22:47:ARLENE Anderson) : N/A (02/12/2020 22:47:ARLENE Anderson) 57i. Epidural/Spinal Anesthesia: Epidural (02/12/2020 22:47:Yajaira Kim RN) Method of Delivery 58a. Forceps - Unsuccessful A: N/A (02/12/2020 22:47:ARLENE Anderson) 58b. Vacuum - Unsuccessful A: N/A (02/12/2020 22:47:ARLENE Anderson) 58c. Presentation at 58c. Presentation at - A : Vertex (02/12/2020 22:47:ARLENE Anderson) 58c. Presentation at - A : N/A (02/12/2020 22:47:ARLENE Anderson) 58c. Presentation at - A : Cephalic (05/29/2020 20:44:Mei Tejeda RN) Final Route and Method of Del 58d. Baby A Route/Delivery: Vaginal (05/31/2020 16:22:ARLENE Anderson) 58e. Trial of Labor Attempted: No (02/12/2020 22:47:Yajaira Kim RN) 58e. Trial of Labor Attempted A: N/A (02/12/2020 22:47:Yajaira Kim RN) 58e. Trial of Labor Attempted B: N/A (02/12/2020 22:47:Yajaira Kim RN) Maternal Morbidity 59b. 3rd or 4th Degree Lacs: Vaginal (02/12/2020 22:47:Meghan Le Naheed) 59b. 3rd or 4th Degree Lacs: N/A (02/12/2020 22:47:Meghan Le [facility]) 59b. 3rd or 4th Degree Lacs: supraficial vaginal laceration repaired (02/12/2020 22:47:Meghan Le [facility]) Birthweight Baby A: 3045 (02/12/2020 22:47:Yjaaira Baidy, RN) 60a. Pounds : 6 (02/12/2020 22:47:QS system process) 60b. Ounces: 11 (02/12/2020 22:47:QS system process) 61. GA at Delivery Baby A: 39.0 [facility] : Full Term- 39- 40.6 Weeks (02/12/2020 22:47:QS system process) 62a. 5 Minute Baby A: 9 (02/12/2020 22:47:QS system process)
--- NOTE | 2020-05-31 18:32 | Delivery Summary ---
Del Sum A-C Datetime Report Generated by CPN: 05/31/2020 18:31 DELIVERY PERSONNEL DELIVERY PERSONNEL: [id number] Delivery Doctor:: Andrea Malone MD Labor and Delivery Nurse:: Yajaira Kim RNmate fourth Nurse:: ARLENE Anderson Inbound Sales Advisor/DRAFTER ELECTRONIC: Yanet Alva, ST Inbound Sales Advisor/DRAFTER ELECTRONIC: Cecilia Lindsey CST Additional Personnel: : Suze Logan RN MATERNAL INFORMATION Delivery Anesthesia: Epidural Medications After Delivery: Pitocin Bolus-Please Comment; Pitocin 30 Units in 500ml NS/D5W Meds After Delivery Comment: Pitocin 30 units in Delivery QBL: 50 Maternal Complications: None LABOR SUMMARY EDC: 06/07/2020 00:00 No. Babies in Womb: 1 Attempted: No Labor Anesthesia: Epidural LABOR INFORMATION Reason for Induction: Not Applicable Onset of Labor: 05/31/2020 09:33 Complete Dilatation: 05/31/2020 15:57 Oxytocin: Augmentation Group B Beta Strep: positive Antibiotics # of Doses: 3 Antibiotics Time of Last Dose: 05/31/2020 15:23 Name of Antibiotic Given: PCN Steroids Given: None Reason Steroids Not Administered: Not Applicable MEMBRANES Membranes Rupture Method: Artificial Rupture of Membranes: 05/31/2020 09:33 Length of Rupture (hr): 6.82 Amniotic Fluid Color: Clear Amniotic Fluid Amount: Small Amniotic Fluid Odor: Normal STAGES OF LABOR Stage 1 hr: 6 Stage 1 min: 24 Stage 2 hr: 0 Stage 2 min: 25 Stage 3 hr: 0 Stage 3 min: 3 Total Time in Labor hr: 6 Total Time in Labor min: 52 VAGINAL DELIVERY Episiotomy: None Laceration #1: Vaginal Laceration Extension #1: N/A Other Laceration: supraficial vaginal laceration repaired Laceration Repair: Yes Sponge Count Correct: N/A Sharps Count Correct: N/A CSECTION DELIVERY Primary Indication: N/A Secondary Indication: N/A CSection Incidence: N/A Labor: N/A Elective: N/A CSection Incision: N/A BABY A INFORMATION Infant Delivery Date/Time: 05/31/2020 16:22 Method of Delivery: Vaginal Nurse Controlled Delivery: No Born in Route : No : N/A Forceps: N/A Vacuum Extraction: N/A Shoulder Dystocia : No PRESENTATION/POSITION BABY A Presentation: Cephalic Cephalic Presentation: Vertex Vertex Position: Right Occipital Anterior Breech Presentation: N/A PLACENTA INFORMATION BABY A Placenta Delivery Time : 05/31/2020 16:25 Placenta Method of Delivery: Spontaneous Placenta Status: Delivered SCORES BABY A Heart Rate 1 min: >100 bpm Resp Effort 1 min: Good Cry Reflex Irritability 1 min: Cough or Sneeze or Pulls Away Muscle Tone 1 min: Active Motion Color 1 min: Body [place], Extremities Blue Resuscitation Effort 1 min: Tactile Stimulation SCORE 1 MIN: 9 Heart Rate 5 min: >100 bpm Resp Effort 5 min: Good Cry Reflex Irritability 5 min: Cough or Sneeze or Pulls Away Muscle Tone 5 min: Active Motion Color 5 min: Body [place], Extremities Blue Resuscitation Effort 5 min: N/A SCORE 5 MIN: 9 Resuscitation Effort 10 min: N/A INFORMATION BABY A Gestational Age at Delivery: 39.0 Gestational Status: Full Term- 39- 40.6 Weeks Infant Outcome : Liveborn Condition : Stable Sex: Male IDENTIFICATION BABY A Verification Date/Time: 05/31/2020 16:47 ID Band Number: [id number] Mother's Name Verified: Yes Infant RN Verifying Infant: Jil, MARIKA Additional Verifying Personnel: BSujata, RN WEIGHT/LENGTH BABY A Birthweight (gm): 3045 Weight (lb): 6 Weight (oz): 11 Infant Length (in): 18.25 Infant Length (cm): 46.36 CORD INFORMATION BABY A No. Cord Vessels: 3 Nuchal Cord : N/A Cord Blood Taken: Yes-For Storage (Mom's Blood type +) Suction: None ASSESSMENT BABY A Complications: Multiple Variable Decels Physical Findings at Delivery: Caput Succedaneum; Molding of the Head; Bruising Physical Findings- Other: bruise noted on right shoulder Respirations: Appears Normal Skin to Skin: Yes Doggy Daycare Activities Director/ALS Called : No Care By: Reba Desmond RN Transferred To: Remains with Mother BABY B INFORMATION : N/A SIGNATURES Signature: with User ID: [email or web address]
[2020-05-31] MEDS: DOCUSATE SODIUM 100 MG CAPSULE PO SCH (20:52)
[2020-05-31] MEDS: FERROUS SULFATE 325 MG TABLET PO SCH (20:52)
[2020-05-31] MEDS: IBUPROFEN 800 MG TABLET PO SCH (21:06)
[2020-05-31] MEDS: FAMOTIDINE 20 MG TABLET PO SCH (21:07)
[2020-06-01] MEDS: IBUPROFEN 800 MG TABLET PO SCH ×3 (05:13→21:20)
[2020-06-01 07:37] LABS: HEMATOCRIT 31.9 % (36.0-47.0); HEMOGLOBIN 10.5 g/dL (12.0-15.5); MEAN CORPUSCULAR HEMOGLOBIN 27.3 pg (27.0-33.4); MEAN CORPUSCULAR HGB CONC 32.8 g/dL (32.0-36.0); MEAN CORPUSCULAR VOLUME 83 fl (80-97); PLATELET COUNT 153 10^3/uL (150-450); RED BLOOD COUNT 3.83 10^6/uL (3.72-5.28); RED CELL DISTRIBUTION WIDTH 16.2 % (11.5-14.0); WHITE BLOOD COUNT 13.7 10^3/uL (4.0-10.5)
[2020-06-01] MEDS: DOCUSATE SODIUM 100 MG CAPSULE PO SCH ×2 (10:14→18:06)
[2020-06-01] MEDS: SENNOSIDES/DOCUSATE 8.6-50 MG 1 EACH TABLET PO SCH (10:14)
[2020-06-01] MEDS: PRENATAL VITAMIN W DHA CAPSULE PO SCH (10:14)
[2020-06-01] MEDS: FERROUS SULFATE 325 MG TABLET PO SCH ×2 (10:14→18:06)
[2020-06-01] MEDS: FAMOTIDINE 20 MG TABLET PO SCH ×2 (10:14→21:19)
--- NOTE | 2020-06-01 12:41 | PDOC PROGRESS REPORT ---
Subjective-OB Progress Note for:: 06/01/20 - PP Day #1, doing well, UOB, voiding, no complaints, A+, Rubella Immune, , Hx +THC use Physical Exam (OB) Vital Signs: Temp Pulse Resp BP Pulse Ox 97.9 F 61 18 107/55 L 98 06/01/20 08:55 06/01/20 08:05 06/01/20 08:05 06/01/20 08:05 06/01/20 08:05 Intake & Output 05/31/20 06/01/20 06/02/20 06:59 06:59 06:59 Intake Total 748 Balance 748 Weight 71.8 kg - General General Appearance: Appears well, Alert In distress: None - PIH/Pre-Eclampsia Clonus: Negative Headache: Absent Epigastric Pain: No Visual Changes: No - Maternal Morbidity 59. Maternal Morbidity (serious complications experinced by the mother associated with labor and delivery: None of the above - Lochia Lochia Amount: Scant < 10 ml Lochia Color: Rubra/Red - Abdomen Description: Tender, Soft Hernia Present: No Fundal Description: Firm, Midline Fundal Height: u/u - u/2 - Respiratory Respiratory Status: No respiratory distress - Abdominal Distension: No distension Tenderness: Nontender - Genitourinary Genitourinary Note: voding - Extremities Upper extremity: Normal inspection Lower extremities: Normal inspection - Neurological Cognition: Normal Orientation: AAOx4 - Psychological Associated symptoms: Normal affect, Normal mood - Skin Skin Temperature: Warm Skin Moisture: Dry Objective-Diagnostic Laboratory: 06/01/20 07:10 06/01/20 07:10 WBC 13.7 H RBC 3.83 Hgb 10.5 L Hct 31.9 L MCV 83 MCH 27.3 MCHC 32.8 RDW 16.2 H Plt Count 153 Assessment and Plan(PN) - Assessment and Plan (1) (normal spontaneous vaginal delivery) Is this a current diagnosis for this admission?: Yes (2) Tetrahydrocannabinol (THC) dependence Is this a current diagnosis for this admission?: Yes Plan:: Routine PP orders, ambulation encouraged - Time Spent with Patient Time with patient: Less than 15 minutes Medications reviewed and adjusted accordingly: Yes - Disposition Anticipated Discharge Disposition: Home, Self Care Anticipated Discharge Timeframe: within 24 hours
[2020-06-01 19:41] VITALS: BP 125/68
[2020-06-02] MEDS: IBUPROFEN 800 MG TABLET PO SCH ×2 (05:16→15:00)
[2020-06-02] MEDS: PRENATAL VITAMIN W DHA CAPSULE PO SCH (09:32)
[2020-06-02] MEDS: DOCUSATE SODIUM 100 MG CAPSULE PO SCH (09:32)
[2020-06-02] MEDS: SENNOSIDES/DOCUSATE 8.6-50 MG 1 EACH TABLET PO SCH (09:32)
[2020-06-02] MEDS: FAMOTIDINE 20 MG TABLET PO SCH (09:32)
[2020-06-02] MEDS: FERROUS SULFATE 325 MG TABLET PO SCH (09:32)
--- NOTE | 2020-06-02 09:59 | PDOC PROGRESS REPORT ---
Subjective-OB Progress Note for:: 06/02/20 Subjective: Ready for discharge. Physical Exam (OB) Vital Signs: Temp Pulse Resp BP Pulse Ox 98.4 F 72 17 125/68 99 06/01/20 19:26 06/01/20 19:26 06/01/20 19:26 06/01/20 19:26 06/01/20 19:26 Intake & Output 06/01/20 06/02/20 06/03/20 06:59 06:59 06:59 Intake Total 748 1650 Balance 748 1650 - PIH/Pre-Eclampsia DTR's: 2 + Clonus: Negative Headache: Absent Epigastric Pain: No Visual Changes: No - Maternal Morbidity 59. Maternal Morbidity (serious complications experinced by the mother associated with labor and delivery: None of the above - Lochia Lochia Amount: Scant < 10 ml Lochia Color: Rubra/Red - Abdomen Description: Soft, Round Hernia Present: No Bowel Sounds: Normoactive Flatus Presence: Present Stool: Yes Fundal Description: Firm, Midline Fundal Height: u/u - u/2 Objective-Diagnostic Laboratory: 06/01/20 07:10 Assessment and Plan(PN) - Time Spent with Patient Time with patient: 15-25 minutes Medications reviewed and adjusted accordingly: Yes - Disposition Anticipated Discharge Disposition: Home, Self Care Anticipated Discharge Timeframe: within 24 hours
--- NOTE | 2020-06-02 10:07 | PDOC DISCHARGE SUMMARY ---
Impression - Admit/DC Date/PCP Admission Date/Primary Care Provider: 05/31/20 07:11 Discharge Date: 06/02/20 - Discharge Diagnosis (1) History of anxiety Is this a current diagnosis for this admission?: Yes (2) (normal spontaneous vaginal delivery) Is this a current diagnosis for this admission?: Yes (3) Positive GBS test Is this a current diagnosis for this admission?: Yes (4) Is this a current diagnosis for this admission?: Yes (5) Tetrahydrocannabinol (THC) dependence Is this a current diagnosis for this admission?: Yes - Additional Information Discharge Diet: Regular Discharge Activity: Activity As Tolerated, Balance Activity w/Rest, Pelvic Rest, Slowly Increase Activity, No tub bath Referrals: GT BENAVIDES MD [ACTIVE PROVISIONAL STAFF] - Home Medications: Vit,Calc76/Iron/Folic [Pnv 29-1 Tablet] 1 tab PO DAILY 02/12/20 HPI Gestational Age: 39 wks Reason(s) for Admission: Onset of Labor Procedures: Ultrasound Intrapartum Procedure(s): Spontaneous Vaginal Delivery Complication(s): Laceration-Vaginal Laceration-Degree: 1st Hospital Course 59. Maternal Morbidity (serious complications experinced by the mother associated with labor and delivery: None of the above Results Laboratory Results: WBC 13.7 10^3/uL (4.0-10.5) H 06/01/20 07:10 RBC 3.83 10^6/uL (3.72-5.28) 06/01/20 07:10 Hgb 10.5 g/dL (12.0-15.5) L 06/01/20 07:10 Hct 31.9 % (36.0-47.0) L 06/01/20 07:10 MCV 83 fl (80-97) 06/01/20 07:10 MCH 27.3 pg (27.0-33.4) 06/01/20 07:10 MCHC 32.8 g/dL (32.0-36.0) 06/01/20 07:10 RDW 16.2 % (11.5-14.0) H 06/01/20 07:10 Plt Count 153 10^3/uL (150-450) 06/01/20 07:10 Lymph % (Auto) 18.7 % (13-45) 05/31/20 07:54 Williams % (Auto) 6.4 % (3-13) 05/31/20 07:54 Eos % (Auto) 2.5 % (0-6) 05/31/20 07:54 Baso % (Auto) 0.6 % (0-2) 05/31/20 07:54 Absolute Neuts (auto) 8.0 10^3/uL (1.7-8.2) 05/31/20 07:54 Absolute Lymphs (auto) 2.1 10^3/uL (0.5-4.7) 05/31/20 07:54 Absolute Monos (auto) 0.7 10^3/uL (0.1-1.4) 05/31/20 07:54 Absolute Eos (auto) 0.3 10^3/uL (0.0-0.6) 05/31/20 07:54 Absolute Basos (auto) 0.1 10^3/uL (0.0-0.2) 05/31/20 07:54 Seg Neutrophils % 71.8 % (42-78) 05/31/20 07:54 Urine Color YELLOW 05/31/20 07:00 Urine Appearance CLOUDY 05/31/20 07:00 Urine pH 6.0 (5.0-9.0) 05/31/20 07:00 Ur Specific [place] 1.016 05/31/20 07:00 Urine Protein 30 mg/dL (NEGATIVE) H 05/31/20 07:00 Urine Glucose (UA) NEGATIVE mg/dL (NEGATIVE) 05/31/20 07:00 Urine Ketones NEGATIVE mg/dL (NEGATIVE) 05/31/20 07:00 Urine Blood NEGATIVE (NEGATIVE) 05/31/20 07:00 Urine Nitrite NEGATIVE (NEGATIVE) 05/31/20 07:00 Urine Bilirubin NEGATIVE (NEGATIVE) 05/31/20 07:00 Urine Urobilinogen NEGATIVE mg/dL (<2.0) 05/31/20 07:00 Ur Leukocyte Esterase LARGE (NEGATIVE) H 05/31/20 07:00 Urine Ascorbic Acid NEGATIVE (NEGATIVE) 05/31/20 07:00 Urine Opiates Screen NEGATIVE 05/31/20 07:00 Urine Methadone Screen NEGATIVE 05/31/20 07:00 Ur Barbiturates Screen NEGATIVE 05/31/20 07:00 Ur Phencyclidine Scrn NEGATIVE 05/31/20 07:00 Ur Amphetamines Screen NEGATIVE 05/31/20 07:00 U Benzodiazepines Scrn NEGATIVE 05/31/20 07:00 Urine Cocaine Screen NEGATIVE 05/31/20 07:00 U Marijuana (THC) Screen UNCONFIRMED POSITIVE 05/31/20 07:00 RPR NONREACTIVE (NONREACTIVE) 05/31/20 07:54 Blood Type A POSITIVE 05/31/20 07:54 Antibody Screen NEGATIVE 05/31/20 07:54 Plan Time Spent: Less than 30 Minutes
== END 2020-06-02 17:18 | disposition home or self-care (01) | DRG 807 ==
LOC: LC 06:50 → LR 07:11 → 2S 20:29
PROVIDERS: ADMIT Obstetrics & Gynecology; ATTEND Obstetrics & Gynecology
PROC: 10E0XZZ Delivery of Products of Conception, External Approach (ICD-10-PCS; principal; 2020-05-31)
PROC: 0HQ9XZZ Repair Perineum Skin, External Approach (ICD-10-PCS; 2020-05-31)
PROC: 10907ZC Drainage of Amniotic Fluid, Therapeutic from Products of Conception, Via Natural or Artificial Opening (ICD-10-PCS; 2020-05-31)
DX: O99.824 Streptococcus B carrier state complicating childbirth (principal); Z37.0 Single live birth; O99.344 Other mental disorders complicating childbirth; F41.9 Anxiety disorder, unspecified; O70.0 First degree perineal laceration during delivery; F12.20 Cannabis dependence, uncomplicated; Z03.818 Encounter for observation for suspected exposure to other biological agents ruled out; Z88.8 Allergy status to other drugs, medicaments and biological substances; Z3A.39 39 weeks gestation of pregnancy
CPT/HCPCS: 1967; 36415; 80307; 80349; 81005; 85025; 85027; 86592; 86850; 86900; 86901; G0480; J2405; J2540; J2590; J2795; J3010; J3490; J7060